=== PATIENT | male | born 1960 | race Caucasian/White ===

== ENCOUNTER → 2016-06-30 | Outpatient (CLI) | payer OTHER ==
[~2016-06-30] MED LIST: AMBIEN CR PO; ASPIRIN81 M1 PO; ASPIRIN81 MG PO; ATENOLOL25 MG PO; FLEXERIL PO; HYDROCHLOROTHIA25 MG PO; HYDROCODON-ACE1 EAC7 PO; HYDROCODON-ACE1 EAC9 PO; KLONOPIN1 M1; NEURONTIN100 MG PO; NORCO 10-325 TA1 TAB PO; OMEPRAZOLE40 M1 PO; PHENERGAN25 M1 PO; PREDNISONE PO; PRILOSEC20 MG PO; XANAX1 MG PO; ZESTRIL40 MG PO; ZITHROMAX1 G/PKT PO; ZOLOFT PO; [UNRECOGNIZED DRUG - REMARK]; [UNRECOGNIZED DRUG - REMARK]
--- NOTE | ~2016-06-30 | US5 ---
[facility] RADIOLOGY TEXT RESULTS PATIENT: AMANDA AL LOCATION: [facility] : 62 UNIT #: [id number] AGE: [address]: Wilfredo Verma MD SEX: M ORDER DR: [id number] [place] [id number] MR#: [id number] Acc #: [id number] NAME: AMANDA AL : 1960 SEX: M STUDY DATE/TIME: 06/30/2016 8:21 UNIT: [facility] ROOM: STUDY DESCRIPTION: US Abdominal Complete Attending Physician: Wilfredo Verma III, M.D. Referring Physician: Wilfredo Verma III, M.D. Ordering Physician: Wilfredo Verma III, M.D. Primary Care Physician: Charisse Stewart Aprn MEDICAL IMAGING REPORT This report is preliminary unless electronic signature is present. EXAM Abdominal ultrasound complete, 06/30/2016 HISTORY Hepatitis C followup, observation for hepatocellular carcinoma. FINDINGS The liver demonstrates a coarsened echotexture but no cystic or solid mass lesions were seen within the liver. The intra and extrahepatic bile ducts are not dilated. The gallbladder is normal with no evidence of cholelithiasis, wall thickening or pericholecystic fluid. The common duct measures 4 mm. The pancreas and spleen are normal. The spleen is enlarged measuring 15.2 cm in greatest diameter. The visualized portions of the abdominal aorta and inferior vena cava within normal limits. The kidneys are normal bilaterally. IMPRESSION 1. Coarsened liver echotexture. No cystic or solid mass lesions were seen within the liver. 2. Normal gallbladder. 3. Splenomegaly. Dictated by... Geraldo Terry M.D. THIS IS AN ELECTRONICALLY VERIFIED REPORT Geraldo Terry M.D. at 07/01/2016 8:29 AM Tobin TD: 06/30/2016 11:45 [facility] RADIOLOGY TEXT RESULTS PATIENT: AMANDA AL LOCATION: [facility] #: [id number] : 62 UNIT #: [id number] AGE: [address]: Wilfredo Verma MD SEX: M ORDER DR: JOB #: [id number] MEDICAL IMAGING REPORT Page 1 of 1
== END | disposition home or self-care (01) ==
LOC: SGUS 07:47
DX: B18.2 Chronic viral hepatitis C (principal); R16.1 Splenomegaly, not elsewhere classified
CPT/HCPCS: 76700